=== PATIENT | male | born 1990 | race Caucasian/White ===

== ENCOUNTER 2017-08-04 19:42 | Emergency (ER) | payer SELFPAY ==
[~2017-08-04] VITALS: Ht 170.2 cm; Wt 87.8 kg
[2017-08-05 00:57] VITALS: BP 99/49
== END 2017-08-05 01:01 | disposition home or self-care (01) ==
LOC: ER 20:59
DX: L60.0 Ingrowing nail (principal)
CPT/HCPCS: 11730; 99283